=== PATIENT | male | born 1965 | race Caucasian/White ===

== ENCOUNTER 2016-05-27 03:17 | Observation (INO) | payer OTHER ==
[~2016-05-27] VITALS: Ht 175.3 cm; Wt 129.0 kg
[2016-05-27] VITALS (10 sets, daily range): BP systolic 105–166; BP diastolic 63–86; PULSE 56–88; RESP 16–21; TEMP 97.6–97.7; O2SAT 94–99
[2016-05-27] MEDS ORDERED: ZANA4CAP PO (03:42)
[2016-05-27] MEDS ORDERED: NEXI40CA PO (03:42)
[2016-05-27] MEDS ORDERED: METH4PAK PO (03:42)
[2016-05-27] MEDS ORDERED: TRAM150C6 PO (03:42)
[2016-05-27] MEDS ORDERED: PANTOPRAZOLE SODIUM 40 MG VIAL IV PUSH ONE (03:45)
[2016-05-27] MEDS ORDERED: SODIUM CHLORIDE 0.9% FLUSH 5 ML FLUSH IVF PRN ×2 (03:45→05:45)
[2016-05-27] MEDS ORDERED: ASPIRIN 81 MG CHEW TAB PO ONE (03:45)
[2016-05-27] MEDS ORDERED: SODIUM CHLORID 0.9% 500 ML INJ 500 ML IV ONE (03:45)
[2016-05-27] MEDS ORDERED: NITROGLYCERIN 2% OINT 1 GM PACKET TOP ONE (03:45)
[2016-05-27] MEDS: NITROGLYCERIN 0.4 MG SL 25 TABS/BTL SL SCH ×3 (03:55→04:31)
--- NOTE | 2016-05-27 04:11 | PD ---
HPI Chief Complaint: Medical Clearance Time Seen by Provider: 03:44 Travel History International Travel<30 days: No Contact w/Intl Traveler<30days: No Traveled to known affect area: No History of Present Illness HPI The patient is a 50 year old male who presents to the [facility] emergency department with a history of chest pressure that he reports began again today, 2 hours prior to arrival. The patient reports that it awoke him from sound sleep. He reports that he had associated shortness of breath. He reports that the pressure sensation is in the center of his chest. He denies having any nausea with it. He denies having any diaphoresis. He reports that he has been experiencing neck pain, however he has had neck pain since a Workmen's Compensation injury April 15, 2016. He reports that he thought that the chest pressure and dry mouth that he is experiencing was related to side effects from his new medication. The patient reports that he was placed on diclofenac for his injuries, however today because of dry mouth and chest pressure that medicine was discontinued and the patient was given a prescription for tramadol, tizanidine, and a Medrol Dosepak taper. The patient reports that he completed a Medrol Dosepak taper with the initial diclofenac prescription as well. He reports that he has now been referred to an orthopedic physician due to the chronic pain. He is also had an MRI of the cervical spine ordered. He denies having any history of cardiac disease. He reports that he is never had a stress test done previously. He denies any prior history of diabetes, hypertension, or hyperlipidemia. He last had a physical related to work in February 2016. The patient reports that he has had a dry cough. The patient reports on review of systems that he also has had worsening acid reflux in spite of taking his usual Nexium. The patient denies having any numbness or tingling to his arms or legs that is new. He reports that he has chronic left foot numbness related to a prior back injury. He denies having any weakness of his extremities. The patient denies any recent fevers, abdominal pain, vomiting, diarrhea, urinary symptoms, or other neurologic symptoms. FOR[facility]LY [facility] Past Medical History Narrative Medical The patient's past medical history is significant for acid reflux, sleep apnea. GERD: Yes Sleep Apnea: Yes Tetanus Vaccination: Unknown Influenza Vaccination: No Past Surgical History Narrative Surgical The patient's past surgical history is significant for a ventral abdominal hernia repair, back surgery in 2001 and in 2005, history of a right shoulder surgery, history of right knee surgery in 1995. Neurologic Surgery: Yes (L5,S1) Social History Alcohol Use: No Tobacco Use: No Substance Use: No Allergies-Medications (Allergen,Severity, Reaction): Coded Allergies: No Known Allergies (Unverified , 05/27/16) Reported Meds & Prescriptions Reported Meds & Active Scripts Active Reported Nexium (Esomeprazole DR) 40 Mg Capdr 40 Mg PO DAILY Tramadol ER 24 HR (Tramadol HCl) 150 Mg Caper 150 Mg PO DAILY Methylprednisolone Dosepak (Methylprednisolone) 4 Dspk 4 Mg PO DIRECTED Per Pharmacist Direction Zanaflex (Tizanidine HCl) 4 Mg Cap 8 Mg PO TID Review of Systems Except as stated in HPI: all other systems reviewed are Neg General / Constitutional: No: Fever Eyes: No: Visual changes HENT: Positive: Neck Stiffness, Neck Pain, No: Headaches, Rhinorrhea, Congestion Cardiovascular: Positive: Chest Pain or Discomfort, No: Diaphoresis Respiratory: Positive: Shortness of Breath, No: Cough Gastrointestinal: No: Nausea, Vomiting, Diarrhea, Abdominal Pain Genitourinary: No: Dysuria Musculoskeletal: Positive: Myalgias, Arthralgias, Limited ROM, Pain Skin: No Rash Neurologic: No: Weakness, Focal Abnormalities, Change in Mentation, Slurred Speech, Sensory Disturbance Psychiatric: No: Depression Endocrine: No: Polydipsia Hematologic/Lymphatic: No: Easy Bruising Physical Exam Narrative General: The patient is a well-developed well-nourished male, anxious appearing on examination. Head and Neck exam: Head is normocephalic atraumatic. Eyes: Pupils are equal round and reactive to light. Nose: Midline septum with pink mucous membranes Mouth: Dentition unremarkable. Moist mucus membranes. Posterior oropharynx is not erythematous. No tonsillar hypertrophy. Uvula midline. Airway patent. Neck: No palpable lymphadenopathy. No nuchal rigidity. No thyromegaly. The patient has no spinous process tenderness to palpation. No step-off or crepitus , no erythema or ecchymosis. The patient does however have tenderness on palpation of the paraspinal muscles along the left side of the cervical spine. The patient also has left upper trapezius muscle tenderness on palpation. Cardiovascular: Regular rate and rhythm without murmurs, gallops, or rubs. No pulse deficit to the extremities and simultaneous auscultation and palpation of his radial artery. Lungs: Clear to auscultation bilaterally. No wheezes, rhonchi, or rales. Abdomen: Soft, without tenderness to palpation in all 4 quadrants of the abdomen. No guarding, rebound, or rigidity. Normal bowel sounds are audible. Extremities: No clubbing, cyanosis, or edema. 2+ pulses in all 4 extremities. No calf tenderness on palpation. Back: No spinous process tenderness to palpation. No costovertebral angle tenderness to palpation. Neurologic Exam: Grossly nonfocal. Skin Exam: No rash noted. Intact skin that is warm and dry. Data Data Last Documented VS Vital Signs Date Time Temp Pulse Resp B/P Pulse Ox O2 Delivery O2 Flow Rate FiO2 05/27/16 03:59 98 Room Air 05/27/16 03:59 18 05/27/16 03:26 58 166/83 05/27/16 03:23 97.7 Orders Electrocardiogram (05/27/16 03:44) B-Type Natriuretic Peptide (05/27/16 03:44) Ckmb (Isoenzyme) Profile (05/27/16 03:44) Complete Blood Count With Diff (05/27/16 03:44) Comprehensive Metabolic Panel (05/27/16 03:44) Magnesium (Mg) (05/27/16 03:44) Prothrombin Time / Inr (Pt) (05/27/16 03:44) Act Partial Throm Time (Ptt) (05/27/16 03:44) Troponin I (05/27/16 03:44) Lipase (05/27/16 03:44) Chest, Single Ap (05/27/16 03:44) Ecg Monitoring (05/27/16 03:44) Bilateral Bp Monitoring (05/27/16 03:44) Iv Access Insert/Monitor (05/27/16 03:44) Oximetry (05/27/16 03:44) Oxygen Administration (05/27/16 03:44) Aspirin Chew (Aspirin Chew) (05/27/16 03:45) Nitroglycerin 2% Oint (Nitroglycerin 2% (05/27/16 03:45) Sodium Chloride 0.9% Flush (Ns Flush) (05/27/16 03:45) Nitroglycerin Sl (Nitrostat Sl) (05/27/16 03:45) Sodium Chlorid 0.9% 500 Ml Inj (Ns 500 M (05/27/16 03:45) Pantoprazole Inj (Protonix Inj) (05/27/16 03:45) Ct Cerv Spine W/O Contrast (05/27/16 ) Sodium Chlor 0.9% 1000 Ml Inj (Ns 1000 M (05/27/16 05:00) CKMB (05/27/16 04:45) CKMB% (05/27/16 04:45) Admit Order (Ed Use Only) (05/27/16 05:38) Place In Observation (05/27/16 05:38) Activity Bed Rest With Brp (05/27/16 05:38) Vital Signs (Adult) Q4H (05/27/16 05:38) Cardiac Rhythm .As Directed (05/27/16 05:38) ^ Notify Dr: Other .PRN (05/27/16 05:38) ^ Notify Dr. Parameters (05/27/16 05:38) Resp Oxygen Nasal Cannula (05/27/16 ) Diet Npo (05/27/16 Breakfast) Electrocardiogram (05/27/16 05:38) Electrocardiogram (05/27/16 08:38) ^ Obtain (05/27/16 05:38) Sodium Chloride 0.9% Flush (Ns Flush) (05/27/16 05:45) Sodium Chloride 0.9% Flush (Ns Flush) (05/27/16 09:00) Acetaminophen (Tylenol) (05/27/16 05:45) Ondansetron Inj (Zofran Inj) (05/27/16 05:45) Pantoprazole (Protonix) (05/27/16 09:00) Nitroglycerin 2% Oint (Nitroglycerin 2% (05/27/16 06:00) Aspirin (Aspirin) (05/27/16 09:00) Labs Laboratory Tests Test 05/27/16 05/27/16 04:00 04:45 White Blood Count 9.3 TH/MM3 Red Blood Count 4.67 MIL/MM3 Hemoglobin 14.0 GM/DL Hematocrit 41.0 % Mean Corpuscular Volume 87.8 FL Mean Corpuscular Hemoglobin 30.1 PG Mean Corpuscular Hemoglobin 34.3 % Concent Red Cell Distribution Width 14.7 % Platelet Count 238 TH/MM3 Mean Platelet Volume 10.1 FL Neutrophils (%) (Auto) 52.4 % Lymphocytes (%) (Auto) 34.1 % Monocytes (%) (Auto) 9.6 % Eosinophils (%) (Auto) 3.1 % Basophils (%) (Auto) 0.8 % Neutrophils # (Auto) 4.9 TH/MM3 Lymphocytes # (Auto) 3.2 TH/MM3 Monocytes # (Auto) 0.9 TH/MM3 Eosinophils # (Auto) 0.3 TH/MM3 Basophils # (Auto) 0.1 TH/MM3 CBC Comment DIFF FINAL Differential Comment Prothrombin Time 10.7 SEC Prothromb Time International 1.0 RATIO Ratio Activated Partial 26.3 SEC Thromboplast Time B-Type Natriuretic Peptide LESS THAN 2 PG/ML Sodium Level 139 MEQ/L Potassium Level 4.4 MEQ/L Chloride Level 107 MEQ/L Carbon Dioxide Level 23.5 MEQ/L Anion Gap 9 MEQ/L Blood Urea Nitrogen 16 MG/DL Creatinine 1.01 MG/DL Estimat Glomerular Filtration 78 ML/MIN Rate Random Glucose 106 MG/DL Calcium Level 8.8 MG/DL Magnesium Level 2.1 MG/DL Total Bilirubin 0.6 MG/DL Aspartate Amino Transf 47 U/L (AST/SGOT) Alanine Aminotransferase 83 U/L (ALT/SGPT) Alkaline Phosphatase 79 U/L Total Creatine Kinase 244 U/L Creatine Kinase MB 0.9 NG/ML Troponin I LESS THAN 0.02 NG/ML Total Protein 7.0 GM/DL Albumin 3.4 GM/DL Lipase 144 U/L MDM Medical Decision Making Medical Screen Exam Complete: Yes Emergency Medical Condition: Yes Medical Record Reviewed: Yes Interpretation(s) Last Impressions Chest X-Ray 05/27/16 0344 Signed Impressions: Service Date/Time: Friday, May 27, 2016 04:31 - CONCLUSION: No acute disease. Manfred Maharaj MD Cervical Spine CT 05/27/16 0000 Signed Impressions: Service Date/Time: Friday, May 27, 2016 04:07 - CONCLUSION: No acute bony injury in the cervical spine Manfred Maharaj MD Differential Diagnosis Acute coronary syndrome, versus anxiety disorder, versus acid reflux, versus medication side effect Narrative Course During the course of the patients emergency department visit, the patients history, examination, and differential diagnosis were reviewed with the patient. The patient had IV access obtained and blood work sent for analysis. The patient was placed on a fire suppression captain with oximetry and blood pressure monitoring. An EKG was done on arrival. The patient's EKG reveals a sinus bradycardia, moderate intraventricular conduction delay with a QRS duration of 112 ms, and lead 3 T waves are inverted, no acute ST segment elevation. The patient was provided aspirin 324 mg by mouth 1, nitroglycerin sublingual every 5 minutes 3 when necessary chest pain, nitroglycerin 1 inch to the chest wall was provided. The patient was given Protonix 40 mg IV, normal saline a 500 mL bolus 1. The patients laboratory studies were reviewed and remarkable for a CBC that is unremarkable, CMP is remarkable for a GFR 78, AST 47, ALT 83, CPK and troponin I within normal limits, BNP is 2, lipase 144, PT PTT within normal limits. Radiology studies were reviewed and remarkable for a CT scan of the cervical spine that is unremarkable, chest x-ray shows no acute abnormality. The patient's pressure in his neck and pressure in his chest improved with the administration of nitroglycerin. Therefore, I am concerned about the possibility of cardiac disease in this patient. The patient is agreeable with the plan to proceed with admission for evaluation and treatment in the chest pain center. Diagnosis Primary Impression: Chest pain, rule out acute myocardial infarction Additional Impression: Musculoskeletal strain Admitting Information Admitting Physician Requests: Jessika Pedro MD May 27, 2016 04:11
[2016-05-27 04:21] LABS: AUTOMATED NEUTROPHIL # 4.9 TH/MM3 (1.8-7.7); BASOPHIL # 0.1 TH/MM3 (0-0.2); BASOPHIL % 0.8 % (0.0-2.0); EOSINOPHIL # 0.3 TH/MM3 (0-0.4); EOSINOPHIL % 3.1 % (0.0-4.0); HEMO FLAGS DIFF FINAL; LYMPH % 34.1 % (9.0-44.0); LYMPHOCYTE # 3.2 TH/MM3 (1.0-4.8); MEAN CELL VOLUME 87.8 FL (80.0-100.0); MEAN CORPUSCULAR HEMOGLOBIN 30.1 PG (27.0-34.0); MEAN CORPUSCULAR HGB CONC 34.3 % (32.0-36.0); MONO % 9.6 % (0.0-8.0); NEUT % 52.4 % (16.0-70.0); PLATELET COUNT 238 TH/MM3 (150-450); RED BLOOD COUNT 4.67 MIL/MM3 (4.50-5.90); RED CELL DISTRIBUTION WIDTH 14.7 % (11.6-17.2); WHITE BLOOD COUNT 9.3 TH/MM3 (4.0-11.0)
--- NOTE | 2016-05-27 04:22 | RADRPT ---
EXAM DATE/TIME: 05/27/2016 04:07 [facility] COMPARISON: No previous studies available for comparison. INDICATIONS : Prior injury to cervical spine in April, pain occuring today. RADIATION DOSE: 33.94 CTDIvol (mGy) MEDICAL HISTORY : None SURGICAL HISTORY : None. ENCOUNTER: Initial ACUITY: 1 month PAIN SCALE: 5/10 LOCATION: neck TECHNIQUE: Volumetric scanning of the cervical spine was performed. Multiplanar reconstructions in the sagittal, coronal and oblique axial planes were performed. Using automated exposure control and adjustment o f the mA and/or kV according to patient size, radiation dose was kept as low as reasonably achievable to obtain optimal diagnostic quality images. FINDINGS: Cervical spine alignment is satisfactory. There is no evidence of fracture. No bony canal or foramina l compromise is identified. Mild degenerative change with disc space narrowing most significantly at C5-6 and C6-7 levels. Small endplate osteophytes are present. Mild posterior facet arthropathy is pre sent and generally worse on the left than the right. There is no evidence of paraspinal hematoma. CONCLUSION: No acute bony injury in the cervical spine Manfred Maharaj MD on May 27, 2016 at 4:19 Board Certified Radiologist. This report was verified electronically.
[2016-05-27 04:35] LABS: APTT (PATIENT) 26.3 SEC (24.3-30.1); PROTHROMBIN TIME - PATIENT 10.7 SEC (9.8-11.6)
[2016-05-27] MEDS ORDERED: SODIUM CHLOR 0.9% 1000 ML INJ 1,000 ML IV ONE (05:00)
[2016-05-27 05:19] LABS: ALKALINE PHOSPHATASE 79 U/L (45-117); ALT (GPT) 83 U/L (12-78); ANION GAP 9 MEQ/L (5-15); AST (GOT) 47 U/L (15-37); BICARBONATE 23.5 MEQ/L (21.0-32.0); BLOOD UREA NITROGEN 16 MG/DL (7-18); CHLORIDE 107 MEQ/L (98-107); CREATINE KINASE 244 U/L (39-308); GLOMERULAR FILTRATION RATE 78 ML/MIN (>89); MAGNESIUM 2.1 MG/DL (1.5-2.5); SODIUM (NA) 139 MEQ/L (136-145); TOTAL BILIRUBIN ADULT 0.6 MG/DL (0.2-1.0)
[2016-05-27 05:23] LABS: POTASSIUM 4.4 MEQ/L (3.5-5.1)
[2016-05-27 05:35] LABS: CKMB 0.9 NG/ML (0.5-3.6)
[2016-05-27] MEDS ORDERED: ACETAMINOPHEN 500 MG CPLT PO PRN ×2 (05:45→09:15)
[2016-05-27] MEDS ORDERED: ONDANSETRON HCL 4 MG/2 ML VIAL IV PRN (05:45)
--- NOTE | 2016-05-27 05:45 | RADRPT ---
EXAM DATE/TIME: 05/27/2016 04:31 [facility] COMPARISON: No previous studies available for comparison. INDICATIONS : Chest pain. MEDICAL HISTORY : Asthma. SURGICAL HISTORY : None. ENCOUNTER: Initial ACUITY: 1 day PAIN SCORE: 7/10 LOCATION: Bilateral chest FINDINGS: A single view of the chest demonstrates the lungs to be symmetrically aerated without evidence of mas s, infiltrate or effusion. The cardiomediastinal contours are unremarkable. Osseous structures are intact. CONCLUSION: No acute disease. Manfred Maharaj MD on May 27, 2016 at 5:43 Board Certified Radiologist. This report was verified electronically.
[2016-05-27] MEDS: NITROGLYCERIN 2% OINT 1 GM PACKET TOP SCH ×2 (05:49→12:00)
[2016-05-27 08:19] LABS: CREATINE KINASE 204 U/L (39-308)
[2016-05-27] MEDS ORDERED: cloNIDine HCL 0.1 MG TAB PO PRN (08:30)
[2016-05-27] MEDS ORDERED: NON-FORMULARY DRUG (Esomeprazole DR (Nexium) 40 MG) PO SCH (09:00)
[2016-05-27] MEDS ORDERED: ASPIRIN 325 MG TAB PO SCH (09:00)
[2016-05-27] MEDS ORDERED: SODIUM CHLORIDE 0.9% FLUSH 5 ML FLUSH IVF SCH (09:00)
[2016-05-27] MEDS ORDERED: PANTOPRAZOLE SOD 40 MG DELAYED RELEASE TAB PO SCH (09:00)
[2016-05-27] MEDS ORDERED: ACETAMINOPHEN/HYDROcodone 325 MG/7.5 MG TAB PO PRN (09:15)
[2016-05-27 12:09] LABS: CREATINE KINASE 175 U/L (39-308)
--- NOTE | 2016-05-27 12:17 | MH ---
cc: CRESCENCIO TREVIZO MD DATE OF ADMISSION: 05/27/2016 DATE OF : 1965 CHIEF COMPLAINT Chest pain, neck pain. HISTORY OF PRESENT ILLNESS This is a 50-year-old male who presents to the ED complaining of two episodes of discomfort in his chest. The first episode began over a week after taking some medication for his neck discomfort about a month ago. He really has a hard time describing how long it lasted, just that it was there. A similar episode occurred yesterday about two hours prior to arrival. It began after taking new medications for his neck. He states he has a neck issue from an injury at work. The discomfort in his chest lasted for several hours. His neck discomfort is chronic. He has a doctor who is following him for his neck issue. He has had some shortness of breath with this, but states he usually has a CPAP device for sleep apnea and did not have it last night. He states that if he is sitting upright at this time he breathes a little easier. He also breathes a little easier once he gets up and starts walking. Denies nausea or diaphoresis with the symptoms. Denies history of CAD. PAST MEDICAL HISTORY 1. Sleep apnea. 2. Neck pain. 3. GERD. Denies diabetes, hypertension and known hyperlipidemia. Denies history of CAD. FAMILY HISTORY Unknown family history of CAD. SOCIAL HISTORY Non-smoker. Denies alcohol or illicit drugs. He is a gravel truck driver. PAST SURGICAL HISTORY Noncontributory. ALLERGIES No known drug allergies. MEDICATIONS 1. Medrol Dosepak, which he is taking now for the second time in the past month. 2. Nexium. 3. Tramadol. 4. Zanaflex. REVIEW OF SYSTEMS GENERAL: Denies fevers or chills. Denies recent illnesses. HEENT: Denies headache, earache, sore throat, difficulty swallowing. CARDIOVASCULAR: Describes the discomfort as mentioned above. Denies diaphoresis. Denies sensation of heart beating rapidly or irregularly. Denies syncope. RESPIRATORY: Denies shortness of breath or inspirational chest discomfort. Denies coughing, wheezing or hemoptysis. GASTROINTESTINAL: Denies nausea, vomiting, diarrhea, abdominal pain or blood in the stool. MUSCULOSKELETAL: The patient is moving upper and lower extremities freely. He does have some discomfort in his neck with movement. This has been going on for a while. The patient is complaining of neck pain, shoulder pain. Denies calf pain or swelling. NEUROVASCULAR: Denies headache or dizziness. ENDOCRINE: Denies polyuria or polydipsia. HEMATOLOGIC: Denies easy bruising. SKIN: Denies rash or itching. PHYSICAL EXAMINATION VITAL SIGNS: In the emergency department initially included a blood pressure 144/86, heart rate 64, respirations 18, pulse oximetry 98% on room air and he was afebrile. Most recent vital signs include a blood pressure 121/70, heart rate 59, respirations 19, pulse oximetry 96% on 2 liters nasal cannula. GENERAL: The patient is seen in the examination room in no apparent distress. He is pleasant. He is also observed walking in the blount to go to the bathroom. His is also at the bedside. He is in no apparent distress. He is obese at 120 kilograms. HEENT: Head is atraumatic, normocephalic. NECK: Neck is supple without lymphadenopathy. Trachea is midline. No JVD or carotid bruit. CARDIOVASCULAR: Regular rate and rhythm without murmur, gallop or rub. RESPIRATORY: Lungs are clear to auscultation bilaterally. No wheezing, rales or rhonchi. No reproducible chest wall discomfort. GI: Abdomen is nontender. Bowel sounds are normal. MUSCULOSKELETAL: No calf tenderness or edema, no Homans' sign. Strong pulses in upper and lower extremities. He is moving upper and lower extremities freely. There is discomfort with movement of neck which he has been having issues with and following a physician for it at this time. NEUROVASCULAR: The patient is alert and oriented. Cranial II-XII are grossly intact. No focal deficit. Speech is clear. Strong club director strength bilaterally. SKIN: No rashes. Turgor is normal. LABORATORY DATA CBC is unremarkable. Coagulation studies are unremarkable. Complete metabolic panel is essentially unremarkable other than AST, ALT being mildly elevated at 47 and 83. First two sets of cardiac enzymes are normal. BNP is normal at 2. Lipase 144. IMAGING STUDIES Single view chest x-ray read by radiologist as no acute disease. A CT C-spine has been read by radiologist as no acute bony injury in the cervical spine. They do mention alignment is satisfactory. There is no evidence of fracture. No bony canal or foraminal compromise identified. Mild degenerative changes with disc space narrowing most significantly at C5-6 and C6-7 levels. Small endplate osteophytes are present. Mild ___ facet arthropathy present, generally worse on left than right. No evidence of paraspinal hematoma. EKGs Have sinus rhythm with nonspecific inferolateral ST-T changes. ASSESSMENT AND PLAN 1. Chest pain: The patient will have serial cardiac enzymes and EKGs for ruling out purposes. He has been seen by Dr. Trevizo. He will undergo a Lexiscan if he does rule out. At that point he should follow up with his physician regarding his neck issues. 2. Neck pain: The patient to continue follow up with his physician managing his neck discomfort. He should resume his medication. 3. Gastroesophageal reflux disease: Continue current medication. 4. Sleep apnea: He uses C-PAP device. The patient is stable at this time. He is agreeable to this plan. Dictated by: Juan Diego Mauro PA-C Jenny Rosenberg/LAURA /9:13 AM /12:05 PM
[2016-05-27 12:21] LABS: CKMB 0.7 NG/ML (0.5-3.6)
--- NOTE | 2016-05-27 13:23 | EKG ---
Date Performed: 05/27/2016 Time Performed: 10:14:27 PTAGE: 50 years EKG: SINUS BRADYCARDIA BORDERLINE ECG Since PREVIOUS TRACING , no significant change noted PREVIOUS TRACIN05/27/2016 06.55 DOCTOR: Robyn Colon Interpretating Date/Time 05/27/2016 13:21:39
--- NOTE | 2016-05-27 13:26 | EKG ---
Date Performed: 05/27/2016 Time Performed: 03:34:44 PTAGE: 50 years EKG: SINUS BRADYCARDIA MODERATE INTRAVENTRICULAR CONDUCTION DELAY BORDERLINE ECG NO PREVIOUS TRACING DOCTOR: Robyn Colon Interpretating Date/Time 05/27/2016 13:25:54
--- NOTE | 2016-05-27 13:26 | EKG ---
Date Performed: 05/27/2016 Time Performed: 06:55:15 PTAGE: 50 years EKG: SINUS BRADYCARDIA BORDERLINE ECG Since PREVIOUS TRACING , no significant change noted PREVIOUS TRACIN05/27/2016 03.34 DOCTOR: Robyn Colon Interpretating Date/Time 05/27/2016 13:25:01
[2016-05-27] MEDS ORDERED: REGADENOSON INJ 0.4 MG/5 ML SYR ONE (14:34)
--- NOTE | 2016-05-27 15:32 | RADRPT ---
EXAM DATE/TIME: 05/27/2016 13:39 [facility] COMPARISON: No previous studies available for comparison. INDICATIONS : Midsternal chest pain for 2 hours. Angina. DOSE: 35 mCi Tc99m Myoview at stress. 11 mCi Tc99m Myoview at rest. 0.4 mg Lexiscan STRESS SYMPTOMS: Stomach pain, headache and chest pressure. EJECTION FRACTION: 47% MEDICAL HISTORY : None. SURGICAL HISTORY : Right knee, right shoulder and back surgery. ENCOUNTER: Initial ACUITY: 1 day PAIN SCALE: 3/10 LOCATION: Midsternal chest TECHNIQUE: The patient underwent pharmacologic stress with infusion of prescribed dose. Continuous ECG tracing was monitored during stress. Gated SPECT imaging was performed after stress and conventional SPECT i maging was performed at rest. The examination was performed on a SPECT/CT scanner, both attenuation and non-corrected datasets were reviewed. FINDINGS: The best perfused myocardium is the lateral and septal regions. There is affixed defect in the anter ior wall that extends to the apex. There is minimal redistribution in the septum towards the apex. M oderate gut activity does obscure the inferior wall. The ejection fraction is 47% the minimal dilatation of the cavity. CONCLUSION: Minimal stress-induced ischemia anterior wall extending to the apex. RISK CATEGORY: Low (<1% Annual Mortality Rate) Delta Bartlett MD FACR on May 27, 2016 at 15:29 Board Certified Radiologist. This report was verified electronically.
[2016-05-27] MEDS ORDERED: ASPI1TAB69 PO (16:03)
[2016-05-27] MEDS ORDERED: AMLO5TAB2 PO (16:03)
--- NOTE | 2016-05-27 16:05 | HHI.DCPOC ---
Discharge Care Plan Diagnosis: (1) Chest pain (2) Chronic neck pain (3) Abnormal stress test Goals to Promote Your Health FOLLOW UP WITH PRIMARY CARE PHYSICIAN WITHIN 1 WEEK FOR RECHECK AND TO HAVE LIPIDS(CHOLESTEROL) CHECKED AND TREATED IF NECESSARY. * To prevent worsening of your condition and complications * To maintain your health at the optimal level Directions to Meet Your Goals Take your medications as prescribed Follow your dietary instruction Follow activity as directed Keep your appointments as scheduled Take your immunizations and boosters as scheduled If your symptoms worsen call your PCP, if no PCP go to Urgent Care Center or Emergency Room Smoking is Dangerous to Your Health. Avoid second hand smoke Call the 24-hour hour crisis hotline for domestic abuse at Juan Diego Mauro May 27, 2016 16:05
--- NOTE | 2016-05-29 16:06 | TR ---
Date Performed: 05/27/2016 Time Performed: 14:17:03 DOCTOR: Robyn Colon DRUG LIST: CLINICAL HISTORY: REASON FOR TEST: Angina REASON FOR ENDING: OBSERVATION: CONCLUSION: Lexiscan stress test was performed under standard four minute protocol. Radionuclid e was injected one minute prior to ending the test. No electrocardiographic abormalities were present to suggest ischemia. Nuclear imaging and interpretation are pending. COMMENTS:
[2016-06-12] MEDS ORDERED: IBUP800T23 PO (09:37)
[2016-06-12] MEDS ORDERED: PANT40TA3 PO (10:37)
[2016-06-12] MEDS ORDERED: NITR0.4S SL (10:37)
[2016-07-02] MEDS ORDERED: METF500T PO (15:54)
[2016-07-02] MEDS ORDERED: VENTAER INH (15:54)
[2016-07-02] MEDS ORDERED: ERGO1CAP10 PO (15:54)
[2016-07-02] MEDS ORDERED: ATOR20TA15 PO (15:54)
[2016-09-25] MEDS ORDERED: IBUP800T23 PO (15:17)
[2016-10-02] MEDS ORDERED: ASPI81CH CHEW (11:14)
[2016-10-02] MEDS ORDERED: ERGO1CAP30 PO (11:14)
[2016-10-02] MEDS ORDERED: PROT40TA PO (11:14)
[2016-10-02] MEDS ORDERED: AMLO5TAB2 PO (11:58)
[2016-10-02] MEDS ORDERED: METF500T PO (11:58)
[2016-10-02] MEDS ORDERED: ATOR20TA15 PO (11:58)
[2016-10-02] MEDS ORDERED: [UNRECOGNIZED DRUG - CODE] IM (12:11)
[2016-10-08] MEDS ORDERED: PROT40TA PO (14:28)
== END 2016-05-27 18:13 | disposition home or self-care (01) ==
LOC: NEPE 03:17 → NEDA 05:40 → NEPFCDU 13:01
PROVIDERS: ADMIT Internal Medicine Interventional Cardiology; ATTEND Internal Medicine Interventional Cardiology
DX: R07.9 Chest pain, unspecified (principal); G89.29 Other chronic pain; R94.39 Abnormal result of other cardiovascular function study; R06.02 Shortness of breath; R68.2 Dry mouth, unspecified; K21.9 Gastro-esophageal reflux disease without esophagitis; G47.30 Sleep apnea, unspecified; R00.1 Bradycardia, unspecified; T14.8 Other injury of unspecified body region; X58.XXXA Exposure to other specified factors, initial encounter; Y99.0 Civilian activity done for income or pay
CPT/HCPCS: 71010; 72125; 78452; 80053; 82550; 82552; 83690; 83735; 83880; 84484; 85025; 85610; 85730; 93005; 93017; 96361; 96374; 99285; A9502; C9113; G0378; J7030; J7040; J2785

== ENCOUNTER 2016-05-28 04:13 | Emergency (ER) | payer OTHER ==
[~2016-05-28] VITALS: Ht 175.3 cm; Wt 127.0 kg
[~2016-05-28 04:13] MED LIST: AMLO5TAB2 PO; ASPI1TAB69 PO; METH4PAK PO; NEXI40CA PO; TRAM150C6 PO; ZANA4CAP PO
[2016-05-28 04:15] VITALS: BP 137/80; PULSE 55; RESP 18; TEMP 98.1; O2SAT 96
[2016-05-28 04:35] VITALS: RESP 24; O2SAT 99
[2016-05-28] MEDS ORDERED: SODIUM CHLORIDE 0.9% FLUSH 5 ML FLUSH IVF PRN (04:45)
[2016-05-28] MEDS ORDERED: LORazepam 2 MG/ML VIAL IV PUSH ONE (04:45)
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
[2016-05-28 05:13] LABS: AUTOMATED NEUTROPHIL # 4.7 TH/MM3 (1.8-7.7); BASOPHIL # 0.1 TH/MM3 (0-0.2); BASOPHIL % 0.8 % (0.0-2.0); EOSINOPHIL # 0.2 TH/MM3 (0-0.4); EOSINOPHIL % 2.2 % (0.0-4.0); HEMATOCRIT 39.8 % (39.0-51.0); HEMO FLAGS DIFF FINAL; LYMPH % 30.6 % (9.0-44.0); LYMPHOCYTE # 2.4 TH/MM3 (1.0-4.8); MEAN CELL VOLUME 87.9 FL (80.0-100.0); MEAN CORPUSCULAR HEMOGLOBIN 29.3 PG (27.0-34.0); MEAN CORPUSCULAR HGB CONC 33.3 % (32.0-36.0); NEUT % 59.4 % (16.0-70.0); PLATELET COUNT 219 TH/MM3 (150-450); RED BLOOD COUNT 4.53 MIL/MM3 (4.50-5.90); RED CELL DISTRIBUTION WIDTH 14.5 % (11.6-17.2); WHITE BLOOD COUNT 7.9 TH/MM3 (4.0-11.0)
[2016-05-28 05:25] LABS: ANION GAP 8 MEQ/L (5-15); BICARBONATE 23.4 MEQ/L (21.0-32.0); BLOOD UREA NITROGEN 11 MG/DL (7-18); CHLORIDE 104 MEQ/L (98-107); GLOMERULAR FILTRATION RATE 82 ML/MIN (>89); POTASSIUM 3.9 MEQ/L (3.5-5.1); SODIUM (NA) 135 MEQ/L (136-145)
[2016-05-28 05:29] LABS: CREATINE KINASE 202 U/L (39-308)
[2016-05-28 05:42] LABS: CKMB 1.3 NG/ML (0.5-3.6)
--- NOTE | 2016-05-28 06:06 | RADRPT ---
EXAM DATE/TIME: 05/28/2016 05:24 [facility] COMPARISON: CHEST SINGLE AP, May 27, 2016, 4:31. INDICATIONS : Shortness of breath. MEDICAL HISTORY : Hypertension. SURGICAL HISTORY : None. ENCOUNTER: Initial ACUITY: 1 day PAIN SCORE: 1/10 LOCATION: Bilateral chest FINDINGS: Symmetrically diminished lung volumes with mild interstitial prominence. No focal alveolar disease or significant effusion suspected. Cardiomediastinal contours are satisfactory. CONCLUSION: Worsening aeration Manfred Maharaj MD on May 28, 2016 at 6:04 Board Certified Radiologist. This report was verified electronically.
--- NOTE | 2016-05-28 20:57 | EKG ---
Date Performed: 05/28/2016 Time Performed: 05:04:14 PTAGE: 50 years EKG: SINUS BRADYCARDIA BORDERLINE ECG PREVIOUS TRACING : 05/27/2016 10.14 DOCTOR: Bryon Cameron Interpretating Date/Time 05/28/2016 20:55:04
[2016-06-12] MEDS ORDERED: IBUP800T23 PO (09:37)
[2016-06-12] MEDS ORDERED: PANT40TA3 PO (10:37)
[2016-06-12] MEDS ORDERED: NITR0.4S SL (10:37)
[2016-07-02] MEDS ORDERED: METF500T PO (15:54)
[2016-07-02] MEDS ORDERED: ATOR20TA15 PO (15:54)
[2016-07-02] MEDS ORDERED: ERGO1CAP10 PO (15:54)
[2016-07-02] MEDS ORDERED: VENTAER INH (15:54)
[2016-09-25] MEDS ORDERED: IBUP800T23 PO (15:17)
[2016-10-02] MEDS ORDERED: PROT40TA PO (11:14)
[2016-10-02] MEDS ORDERED: ASPI81CH CHEW (11:14)
[2016-10-02] MEDS ORDERED: ERGO1CAP30 PO (11:14)
[2016-10-02] MEDS ORDERED: AMLO5TAB2 PO (11:58)
[2016-10-02] MEDS ORDERED: METF500T PO (11:58)
[2016-10-02] MEDS ORDERED: ATOR20TA15 PO (11:58)
[2016-10-02] MEDS ORDERED: [UNRECOGNIZED DRUG - CODE] IM (12:11)
[2016-10-08] MEDS ORDERED: PROT40TA PO (14:28)
== END 2016-05-28 07:00 | disposition home or self-care (01) ==
LOC: NEPC 04:13
DX: R07.9 Chest pain, unspecified (principal); R06.00 Dyspnea, unspecified; R94.31 Abnormal electrocardiogram [ECG] [EKG]; Z87.19 Personal history of other diseases of the digestive system; V89.0XXD Person injured in unspecified motor-vehicle accident, nontraffic, subsequent encounter; Y99.0 Civilian activity done for income or pay
CPT/HCPCS: 71010; 80048; 82550; 82552; 83880; 84484; 85025; 85379; 93005; 96374; 99285; J2060

== ENCOUNTER 2016-05-30 02:53 | Emergency (ER) | payer OTHER ==
[2016-05-30 03:02] VITALS: BP 133/81; PULSE 56; RESP 20; TEMP 98; O2SAT 95
[2016-05-30] MEDS ORDERED: HYDR-3533 PO (03:21)
[2016-05-30] MEDS ORDERED: ACETAMINOPHEN/HYDROcodone 325 MG/5 MG TAB PO ONE (03:30)
[2016-05-30] MEDS ORDERED: ONDANSETRON ODT 4 MG TAB PO ONE (03:30)
[2016-05-30] MEDS ORDERED: KETOROLAC TROMETHAMINE 60 MG/2 ML (IM) VIAL IM ONE (03:30)
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
[2016-06-12] MEDS ORDERED: IBUP800T23 PO (09:37)
[2016-06-12] MEDS ORDERED: NITR0.4S SL (10:37)
[2016-06-12] MEDS ORDERED: PANT40TA3 PO (10:37)
[2016-07-02] MEDS ORDERED: VENTAER INH (15:54)
[2016-07-02] MEDS ORDERED: ERGO1CAP10 PO (15:54)
[2016-07-02] MEDS ORDERED: METF500T PO (15:54)
[2016-07-02] MEDS ORDERED: ATOR20TA15 PO (15:54)
[2016-09-25] MEDS ORDERED: IBUP800T23 PO (15:17)
[2016-10-02] MEDS ORDERED: ASPI81CH CHEW (11:14)
[2016-10-02] MEDS ORDERED: ERGO1CAP30 PO (11:14)
[2016-10-02] MEDS ORDERED: PROT40TA PO (11:14)
[2016-10-02] MEDS ORDERED: AMLO5TAB2 PO (11:58)
[2016-10-02] MEDS ORDERED: METF500T PO (11:58)
[2016-10-02] MEDS ORDERED: ATOR20TA15 PO (11:58)
[2016-10-02] MEDS ORDERED: [UNRECOGNIZED DRUG - CODE] IM (12:11)
[2016-10-08] MEDS ORDERED: PROT40TA PO (14:28)
== END 2016-05-30 03:47 | disposition home or self-care (01) ==
LOC: NEPB 02:53
DX: S16.1XXA Strain of muscle, fascia and tendon at neck level, initial encounter (principal); G47.30 Sleep apnea, unspecified; X58.XXXA Exposure to other specified factors, initial encounter; Y93.I9 Activity, other involving external motion; Y92.812 Truck as the place of occurrence of the external cause
CPT/HCPCS: 96372; 99283; J1885

== ENCOUNTER 2016-05-30 06:55 | Emergency (ER) | payer OTHER ==
[~2016-05-30] VITALS: Ht 175.3 cm; Wt 126.0 kg
[~2016-05-30 06:55] MED LIST changes: +HYDR-3533 PO
[2016-05-30 07:02] VITALS: BP 151/77; PULSE 63; RESP 20; TEMP 98.6; O2SAT 97
[2016-05-30 07:11] VITALS: BP 151/77; PULSE 58; RESP 18; O2SAT 96; O2SAT 97
[2016-05-30] MEDS ORDERED: SODIUM CHLORIDE 0.9% FLUSH 5 ML FLUSH IVF PRN (07:15)
[2016-05-30 07:18] VITALS: BP_SYST 133; BP_SYST 151; BP_DIAS 66; BP_DIAS 77; PULSE 69
--- NOTE | 2016-05-30 07:43 | RADRPT ---
EXAM DATE/TIME: 05/30/2016 07:14 [facility] COMPARISON: CHEST SINGLE AP, May 28, 2016, 5:24. INDICATIONS : Short of Breath and Chest Pain MEDICAL HISTORY : None. SURGICAL HISTORY : None. ENCOUNTER: Initial ACUITY: 1 day PAIN SCORE: 5/10 LOCATION: Bilateral chest FINDINGS: Portable AP view of the chest demonstrates a normal-sized cardiac silhouette. The lungs are underinfl ated with likely mild atelectasis at the bases. No effusion, consolidation, or pneumothorax is identi fied. The bones and soft tissues demonstrate no acute finding. CONCLUSION: Mild underinflation with atelectasis at the bases. Otherwise, no acute finding is identified. Manfred Fonseca MD on May 30, 2016 at 7:41 Board Certified Radiologist. This report was verified electronically.
[2016-05-30] MEDS ORDERED: KETOROLAC TROMETHAMINE 30 MG/ML (IVP) VIAL IV PUSH ONE (07:45)
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
[2016-05-30 07:55] LABS: AUTOMATED NEUTROPHIL # 8.8 TH/MM3 (1.8-7.7); BASOPHIL # 0.2 TH/MM3 (0-0.2); BASOPHIL % 1.4 % (0.0-2.0); EOSINOPHIL % 0.1 % (0.0-4.0); HEMATOCRIT 41.1 % (39.0-51.0); HEMO FLAGS DIFF FINAL; LYMPH % 13.9 % (9.0-44.0); LYMPHOCYTE # 1.6 TH/MM3 (1.0-4.8); MEAN CELL VOLUME 86.1 FL (80.0-100.0); MEAN CORPUSCULAR HEMOGLOBIN 29.4 PG (27.0-34.0); MEAN CORPUSCULAR HGB CONC 34.2 % (32.0-36.0); NEUT % 78.6 % (16.0-70.0); PLATELET COUNT 286 TH/MM3 (150-450); RED BLOOD COUNT 4.77 MIL/MM3 (4.50-5.90); RED CELL DISTRIBUTION WIDTH 14.6 % (11.6-17.2); WHITE BLOOD COUNT 11.2 TH/MM3 (4.0-11.0)
[2016-05-30 08:33] LABS: APTT (PATIENT) 25.7 SEC (24.3-30.1); PROTHROMBIN TIME - PATIENT 11.2 SEC (9.8-11.6)
[2016-05-30 08:49] LABS: ALKALINE PHOSPHATASE 92 U/L (45-117); ALT (GPT) 86 U/L (12-78); ANION GAP 7 MEQ/L (5-15); AST (GOT) 36 U/L (15-37); BICARBONATE 24.2 MEQ/L (21.0-32.0); BLOOD UREA NITROGEN 17 MG/DL (7-18); CHLORIDE 106 MEQ/L (98-107); GLOMERULAR FILTRATION RATE 78 ML/MIN (>89); MAGNESIUM 2.4 MG/DL (1.5-2.5); POTASSIUM 4.4 MEQ/L (3.5-5.1); SODIUM (NA) 137 MEQ/L (136-145); TOTAL BILIRUBIN ADULT 0.7 MG/DL (0.2-1.0)
[2016-05-30 09:22] VITALS: BP 121/59
--- NOTE | 2016-06-01 22:02 | EKG ---
Date Performed: 05/30/2016 Time Performed: 07:07:09 PTAGE: 50 years EKG: SINUS BRADYCARDIA BORDERLINE ECG PREVIOUS TRACING : 05/28/2016 05.04 Compared to prior tracing no significant change DOCTOR: Iraj Tavera Interpretating Date/Time 06/01/2016 22:01:11
[2016-06-12] MEDS ORDERED: IBUP800T23 PO (09:37)
[2016-06-12] MEDS ORDERED: NITR0.4S SL (10:37)
[2016-06-12] MEDS ORDERED: PANT40TA3 PO (10:37)
[2016-07-02] MEDS ORDERED: ATOR20TA15 PO (15:54)
[2016-07-02] MEDS ORDERED: ERGO1CAP10 PO (15:54)
[2016-07-02] MEDS ORDERED: VENTAER INH (15:54)
[2016-07-02] MEDS ORDERED: METF500T PO (15:54)
[2016-09-25] MEDS ORDERED: IBUP800T23 PO (15:17)
[2016-10-02] MEDS ORDERED: PROT40TA PO (11:14)
[2016-10-02] MEDS ORDERED: ASPI81CH CHEW (11:14)
[2016-10-02] MEDS ORDERED: ERGO1CAP30 PO (11:14)
[2016-10-02] MEDS ORDERED: ATOR20TA15 PO (11:58)
[2016-10-02] MEDS ORDERED: METF500T PO (11:58)
[2016-10-02] MEDS ORDERED: AMLO5TAB2 PO (11:58)
[2016-10-02] MEDS ORDERED: [UNRECOGNIZED DRUG - CODE] IM (12:11)
[2016-10-08] MEDS ORDERED: PROT40TA PO (14:28)
== END 2016-05-30 10:31 | disposition home or self-care (01) ==
LOC: NEPC 06:55
DX: S16.1XXA Strain of muscle, fascia and tendon at neck level, initial encounter (principal); R07.9 Chest pain, unspecified; R94.31 Abnormal electrocardiogram [ECG] [EKG]; G47.30 Sleep apnea, unspecified; X58.XXXA Exposure to other specified factors, initial encounter; Y93.84 Activity, sleeping; Y92.812 Truck as the place of occurrence of the external cause
CPT/HCPCS: 71010; 80053; 83735; 84484; 85025; 85379; 85610; 85730; 93005; 96374; 99284; J1885

== ENCOUNTER 2017-02-28 17:42 | Emergency (ER) | payer BC ==
[~2017-02-28] VITALS: Ht 175.3 cm; Wt 125.0 kg
[~2017-02-28 17:42] MED LIST changes: +ALBUAER3 INH; +ASPI-516 CHEW; -ASPI1TAB69 PO; +ATOR20TA15 PO; -HYDR-3533 PO; +IBUP1TAB7 PO; +METF500T PO; -METH4PAK PO; -NEXI40CA PO; +NITR0.4S SL; +PROT40TA PO; -TRAM150C6 PO; +VITA500012 PO; -ZANA4CAP PO
[2017-02-28 17:45] VITALS: BP 130/69; PULSE 79; RESP 18; TEMP 98.6; O2SAT 93
--- NOTE | 2017-02-28 18:14 | PD ---
HPI Chief Complaint: Musculoskeletal Complaint Time Seen by Provider: 17:58 Travel History International Travel<30 days: No Contact w/Intl Traveler<30days: No Traveled to known affect area: No History of Present Illness HPI 51 year-old male presents to the emergency room for evaluation of left middle finger pain and swelling after injuring it just prior to arrival. Patient was working out at the gym when he slammed his left 3rd finger between 2 40 pound dumbbells. Patient states the tip of his finger was skin. The nurse at his work wrapped it and he came straight to the ED. Patient reports extreme pain, worse when he touches the area and bends the finger. Denies paresthesias. Unknown last tetanus. PFSH Past Medical History Asthma: Yes GERD: Yes Respiratory: Yes (ASTHMA) Immunizations Current: No Sleep Apnea: Yes (wears CPAP) Past Surgical History Neurologic Surgery: Yes (L5,S1) Social History Alcohol Use: Yes (on occasion) Tobacco Use: No Substance Use: No Allergies-Medications (Allergen,Severity, Reaction): Coded Allergies: No Known Allergies (Unverified , 02/28/17) Reported Meds & Prescriptions Reported Meds & Active Scripts Active Proair Hfa 8.5 GM Inh (Albuterol Sulfate) 90 Mcg/Act Aer 2 Puff INH Q4-6H PRN 108 mcg/actuation Protonix (Pantoprazole Sodium) 40 Mg Tab 40 Mg PO DAILY Ibuprofen 800 Mg Tab 800 Mg PO Q8H PRN take sparingly, as needed only as with risk of cardiovascular, stomach and kidney adverse effects Metformin (Metformin HCl) 500 Mg Tab 500 Mg PO BIDPC With meals Atorvastatin (Atorvastatin Calcium) 20 Mg Tab 20 Mg PO HS Ergocalciferol 50,000 Unit Cap 50,000 Units PO Q7D Amlodipine (Amlodipine Besylate) 5 Mg Tab 5 Mg PO DAILY Nitrostat SL (Nitroglycerin) 0.4 Mg Subl 0.4 Mg SL DIRECTED PRN 1 tablet under tongue as needed for chest pain. Repeat every 5 minutes, 3 doses total. Call 911 if NO relief. Reported Aspirin 81 Mg Chew 81 Mg CHEW DAILY Review of Systems Except as stated in HPI: all other systems reviewed are Neg Physical Exam Narrative GENERAL: Well-nourished, well-developed male in no acute distress. Afebrile. Ambulatory. SKIN: Focused skin assessment warm/dry. There is a 1 cm superficial, avulsion type laceration over the tip of the left third finger. Nonbleeding. HEAD: Normocephalic. EYES: No scleral icterus. No injection or drainage. NECK: Supple, trachea midline. No JVD or lymphadenopathy. CARDIOVASCULAR: Regular rate and rhythm without murmurs, gallops, or rubs. RESPIRATORY: Breath sounds equal bilaterally. No accessory muscle use. MUSCULOSKELETAL: No cyanosis. Mild edema to the tip of the left third finger. Full range of motion. Distal sensation intact. Less than 2 second capillary refill distally. Data Data Last Documented VS Vital Signs Date Time Temp Pulse Resp B/P (MAP) Pulse Ox O2 Delivery O2 Flow Rate FiO2 02/28/17 17:45 98.6 79 18 130/69 (89) 93 Room Air Orders Orders Tetanus/Diphtheria Tox Adult (Tetanus/Di (02/28/17 18:15) Cephalexin (Keflex) (02/28/17 18:15) Finger ([id number]) (02/28/17 ) Ed Discharge Order (02/28/17 18:49) MDM Medical Decision Making Medical Screen Exam Complete: Yes Emergency Medical Condition: Yes Medical Record Reviewed: Yes Differential Diagnosis Fracture, contusion, laceration Narrative Course 51-year-old male presents to the emergency room for evaluation of laceration to the left third finger that occurred just prior to arrival. Patient slammed his finger between 2 40 pound dumbbells. Tetanus was updated in the emergency room. Patient has full range of motion and distal sensation is intact. Less than 2 second capillary refill distally. X-ray is negative. Laceration was thoroughly cleansed and repaired, see procedure for details. Patient discharged with wound care instructions and told to follow up with PCP or return for worsening symptoms. He understands and agrees to plan. Diagnosis Primary Impression: Finger laceration Qualified Codes: S61.213A - Laceration without foreign body of left middle finger without damage to nail, initial encounter Referrals: Primary Care Physician Additional Instructions: Keep wound clean and dry. Triple antibiotic ointment daily. Sutures out in 7-10 days. Keflex as directed, until gone. Follow-up with a primary care physician and/or hand surgeon. Return for worsening symptoms. Disposition: 01 DISCHARGE HOME Condition: Stable Asuncion Zamora Feb 28, 2017 18:14
[2017-02-28] MEDS ORDERED: CEPHALEXIN MONOHYDRATE 500 MG CAP PO ONE (18:15)
[2017-02-28] MEDS ORDERED: TETANUS/DIPHTHERIA TOXOID ADULT 0.5 ML VIAL IM ONE (18:15)
--- NOTE | 2017-02-28 18:48 | RADRPT ---
EXAM DATE/TIME: 02/28/2017 18:26 [facility] COMPARISON: No previous studies available for comparison. INDICATIONS : Left distal third digit pain from a crushing injury. MEDICAL HISTORY : None. SURGICAL HISTORY : None. ENCOUNTER: Initial ACUITY: 1 day PAIN SCORE: 8/10 LOCATION: Left distal third digit hand FINDINGS: Examination of the third digit of the left hand demonstrates no evidence of fracture or dislocation. No radiopaque foreign bodies are seen. Soft tissue swelling involving the distal phalanx. CONCLUSION: 1. Soft tissue swelling. No radiopaque foreign bodies or fractures. Checo Parham Jr., MD on February 28, 2017 at 18:45 Board Certified Radiologist. This report was verified electronically.
== END 2017-02-28 19:03 | disposition home or self-care (01) ==
LOC: NEPK 17:42
DX: S61.213A Laceration without foreign body of left middle finger without damage to nail, initial encounter (principal); J45.909 Unspecified asthma, uncomplicated; K21.9 Gastro-esophageal reflux disease without esophagitis; W23.0XXA Caught, crushed, jammed, or pinched between moving objects, initial encounter; Z23 Encounter for immunization; Z79.899 Other long term (current) drug therapy
CPT/HCPCS: 73140; 90471; 90714